=== PATIENT | male | born 1945 | race African-American/Black ===

== ENCOUNTER 2017-05-29 05:58 | Emergency (ER) | payer OTHER, BC ==
[~2017-05-29 05:58] MED LIST: ACETAMINOPHEN/O1 TA3 PO; AMLODIPINE BESYL5 M1 PO; ATORVASTATIN CA40 M1 PO; FLA500 PO; HCTZ/LISINOPRIL1 TA1 PO; ZES20 PO
[2017-05-29 08:04] VITALS: BP 145/70
== END 2017-05-29 08:04 | disposition home or self-care (01) ==
LOC: ED 05:58
DX: M62.830 Muscle spasm of back (principal); I10 Essential (primary) hypertension; E78.5 Hyperlipidemia, unspecified
CPT/HCPCS: 20552; J2001

== ENCOUNTER 2017-06-18 10:54 | Emergency (ER) | payer OTHER, BC ==
[~2017-06-18] VITALS: Ht 180.3 cm; Wt 109.4 kg
[2017-06-18 13:26] VITALS: BP 175/72
== END 2017-06-18 13:26 | disposition home or self-care (01) ==
LOC: ED 10:54
DX: J40 Bronchitis, not specified as acute or chronic (principal); I10 Essential (primary) hypertension; E78.00 Pure hypercholesterolemia, unspecified; Z79.899 Other long term (current) drug therapy

== ENCOUNTER 2018-08-09 16:43 | Inpatient (IN) | payer OTHER, BC ==
[~2018-08-09] VITALS: Ht 180.3 cm; Wt 113.9 kg
[2018-08-09 16:54] VITALS: Ht 180.3 cm; Wt 113.9 kg
[2018-08-09 17:45] LABS: BASOPHIL % 1.1 % (0-2); PLATELET COUNT 245 x10^3mcL (130-400); RED CELL DISTRIBUTION WIDTH 13.3 % (11.5-14.5)
[2018-08-09 17:59] LABS: CALCIUM 9.1 mg/dL (8.5-10.1); CARBON DIOXIDE 29.8 mmol/L (21-32); CHLORIDE SERUM 104 mmol/L (98-107); CREATININE SERUM 1.3 mg/dL (0.7-1.3); GLUCOSE SERUM 105 mg/dL (74-106); POTASSIUM SERUM 3.9 mmol/L (3.5-5.1); SODIUM SERUM 142 mmol/L (136-145)
[2018-08-09 18:00] LABS: ALBUMIN 3.3 g/dL (3.4-5.0); ALKALINE PHOSPHATASE 59 U/L (46-116); ALT/SGPT 46 U/L (16-63); AST/SGOT 23 U/L (15-37); TOTAL PROTEIN, SERUM 7.4 g/dL (6.4-8.2)
[2018-08-09 20:00] LABS: MAGNESIUM 2.4 mg/dL (1.8-2.4)
[2018-08-09 20:09] LABS: T3 TOTAL 0.82 ng/mL
[2018-08-09 20:10] LABS: FREE T4 0.79 ng/dL (0.76-1.46)
[2018-08-09 20:11] LABS: FREE THYROXINE INDEX 1.8 ug/dL (1.4-4.5); T4(THYROXINE) 4.5 ug/dL (4.7-13.3)
[2018-08-09 20:25] LABS: microscopic required? NO
[2018-08-09 20:30] VITALS: BP 166/81
[2018-08-09 20:51] LABS: urine erythrocyte NEGATIVE (NEGATIVE)
[2018-08-09 20:57] LABS: AMPHETAMINE QUAL UR NONE DETECTED (See below)
[2018-08-10 02:13] LABS: PLATELET COUNT 241 x10^3mcL (130-400); RED CELL DISTRIBUTION WIDTH 12.5 % (11.5-14.5)
[2018-08-10 02:15] LABS: BASOPHIL % 4.3 % (0-2)
[2018-08-10 02:27] LABS: CALCIUM 8.9 mg/dL (8.5-10.1); CARBON DIOXIDE 27.9 mmol/L (21-32); CHLORIDE SERUM 104 mmol/L (98-107); CREATININE SERUM 1.3 mg/dL (0.7-1.3); GLUCOSE SERUM 109 mg/dL (74-106); MAGNESIUM 2.3 mg/dL (1.8-2.4); PHOSPHOROUS 4.4 mg/dL (2.5-4.9); POTASSIUM SERUM 4.1 mmol/L (3.5-5.1); SODIUM SERUM 141 mmol/L (136-145)
[2018-08-10 05:31] VITALS: BP 134/60
[2018-08-10 09:00] VITALS: BP 149/90
[2018-08-10 12:48] VITALS: BP 168/71
[2018-08-10 16:10] VITALS: BP 154/66
[2018-08-10] MEDS ORDERED: ZOLOFT50 MG PO (18:40)
[2018-08-10] MEDS ORDERED: CRESTOR10 M1 PO (18:42)
[2018-08-10] MEDS ORDERED: HYZAAR1 TAB PO (18:43)
[2018-08-10 22:22] VITALS: BP 168/71
[2018-08-10 23:30] VITALS: BP 157/78
[2018-08-11 06:25] VITALS: BP 138/63
[2018-08-11 07:45] LABS: BASOPHIL % 0.2 % (0-2); PLATELET COUNT 205 x10^3mcL (130-400); RED CELL DISTRIBUTION WIDTH 13.5 % (11.5-14.5)
[2018-08-11 07:50] LABS: CALCIUM 8.7 mg/dL (8.5-10.1); CARBON DIOXIDE 27.2 mmol/L (21-32); CHLORIDE SERUM 105 mmol/L (98-107); GLUCOSE SERUM 86 mg/dL (74-106); POTASSIUM SERUM 3.9 mmol/L (3.5-5.1); SODIUM SERUM 137 mmol/L (136-145)
[2018-08-11] MEDS ORDERED: ECO81 PO (09:21)
[2018-08-11 09:23] VITALS: BP 159/70
[2018-08-11 12:58] VITALS: BP 159/70
[2018-08-11 13:10] VITALS: BP 140/61
== END 2018-08-11 15:59 | disposition home or self-care (01) | DRG 311 ==
LOC: ED 16:43 → DU 19:09
PROVIDERS: Emergency Medicine; Family Medicine
DX: I20.8 Other forms of angina pectoris (principal); N17.0 Acute kidney failure with tubular necrosis; E44.1 Mild protein-calorie malnutrition; I16.0 Hypertensive urgency; I36.1 Nonrheumatic tricuspid (valve) insufficiency; I35.1 Nonrheumatic aortic (valve) insufficiency; E78.5 Hyperlipidemia, unspecified; D72.829 Elevated white blood cell count, unspecified; E66.9 Obesity, unspecified; Z92.3 Personal history of irradiation; Z96.651 Presence of right artificial knee joint; Z68.35 Body mass index [BMI] 35.0-35.9, adult; Z92.21 Personal history of antineoplastic chemotherapy; Z85.46 Personal history of malignant neoplasm of prostate
CPT/HCPCS: 83880; 84439; J7030; Q0092